=== PATIENT | female | born 1965 | race Caucasian/White ===

== ENCOUNTER 2021-06-04 15:44 | Emergency (ER) | payer OTHER, SELFPAY ==
--- NOTE | ~2021-06-04 | XR_ITS ---
EXAMINATION: XR knee RT min 4V DATE: 06/04/2021 18:16 INDICATION: Anterolateral right knee pain post twisting injury TECHNIQUE: Anteroposterior, 2 oblique, sunrise and crosstable lateral views of the right knee were ob tained COMPARISON: None. FINDINGS: Alignment is normal. No fracture. Joint spaces appear relatively preserved on nonweightbearing imagi ng. Small marginal osteophytes at the patellofemoral compartment. Chondrocalcinosis at the medial and to a lesser degree at the lateral compartments. Small to moderate-sized right knee joint effusion wi thout evident layering lipohemarthrosis. Soft tissues are unremarkable. IMPRESSION: 1. Small to moderate-sized right knee joint effusion. No acute osseous abnormality. 2. Chondrocalcinosis in the medial and lateral compartments. Reviewed, dictated and finalized at location A. IMPRESSION: 1. Small to moderate-sized right knee joint effusion. No acute osseous abnormal ity. 2. Chondrocalcinosis in the medial and lateral compartments.
[2021-06-04 15:54] VITALS: BP 130/65; PULSE 107; RESP 16; TEMP 36.7; O2SAT 98
--- NOTE | 2021-06-04 16:27 | ED.GENADULT ---
HPI - General Adult General Chief complaint: Extremity Injury, Lower <CARLOS MANUEL Stewart - Last Filed: 06/05/21 12:56> Stated complaint: fell right knee pain <CARLOS MANUEL Stewart - Last Filed: 06/05/21 12:56> Time Seen by Provider: 06/04/21 16:02 <CARLOS MANUEL Stewart - Last Filed: 06/05/21 12:56> Source: patient and RN notes reviewed <CARLOS MANUEL Stewart - Last Filed: 06/05/21 12:56> Mode of arrival: ambulatory <CARLOS MANUEL Stewart - Last Filed: 06/05/21 12:56> Limitations: no limitations <CARLOS MANUEL Stewart - Last Filed: 06/05/21 12:56> History of Present Illness HPI narrative: 56-year-old female presents with complaints of right knee pain and swelling for the past 3 hours. ?Conchita reports walking and slipped on a potato chip causing RT leg to give out, believing she twisted RT knee causing injury. ?Motrin 800mg, last taken at 15:30 without relief. ?No radiation of pain. ?No numbness or tingling or bleeding. ?No loss of mobility. ?Exacerbating factors consist of bearing weight and applying pressure. ?No fever. ?LMP 2008. ?Remains active. ?The patient reports she has not been diagnosed with COVID-19. ?The patient reports she is not waiting for the results of a COVID-19 lab test. ?The patient reports she does not have chills, weakness, fatigue, or myalgia. ?The patient reports she does not have a new or worsening cough or shortness of breath. ?The patient reports she does not have any rhinorrhea, congestion, loss of taste, sore throat, nausea, vomiting, abdominal pain, and diarrhea. ?Denies recent traveling. ?Denies concerns for COVID-19 or exposures. ?At this time, the patient is not suspected of having COVID-19.? Some parts of this dictation were generated by voice recognition software and may contain typographical and/or grammatical inaccuracies. <CARLOS MANUEL Stewart - Last Filed: 06/05/21 12:56> Related Data Home medications: Home Medications Medication Instructions Recorded Confirmed No Home Medications 06/04/21 06/04/21 <CARLOS MANUEL Stewart - Last Filed: 06/05/21 12:56> Allergies/adverse reactions: Allergies Allergy/AdvReac Type Severity Reaction Status Date / Time No Known Allergies Allergy Unknown Unverified 08/26/09 15:00 <CARLOS MANUEL Stewart - Last Filed: 06/05/21 12:56> Review of Systems Review of Systems: Narrative: CONSTITUTIONAL: Denies fever, chills, sweats. EYES: Denies visual changes, redness, discharge. ENT: Denies rhinorrhea, congestion, sore throat, otalgia. CARDIOVASCULAR: Denies chest pain, palpitations, edema. RESPIRATORY: Denies dyspnea, wheezing, cough. GASTROINTESTINAL: Denies abdominal pain, nausea, vomiting, diarrhea. SKIN: Denies rash or itching. MUSCULOSKELETAL: Denies acute back pain or myalgia. Complains of Right knee swelling and pain. NEUROLOGIC: Denies numbness or focal weakness. PSYCHIATRIC: Denies anxiety or depression. All other systems reviewed & are unremarkable except as noted in HPI and below. <CARLOS MANUEL Stewart - Last Filed: 06/05/21 12:56> [facility] Past Medical History Medical History: Medical History (Updated 06/05/21 @ 00:01 by Khloe Washington) Back pain with history of spinal surgery <CARLOS MANUEL Stewart - Last Filed: 06/05/21 12:56> Surgical History Surgical History: Surgical History (Updated 06/04/21 @ 16:32 by CARLOS MANUEL Stewart) History of knee surgery History of spinal surgery Fusion with T11-T12 L1 <CARLOS MANUEL Stewart - Last Filed: 06/05/21 12:56> Family History Family History: Family History (Updated 06/04/21 @ 16:33 by CARLOS MANUEL Stewart) Father Congestive heart failure Mother Alive and well <CARLOS MANUEL Stewart - Last Filed: 06/05/21 12:56> Social History Social History: Social History (Updated 06/04/21 @ 16:47 by CARLOS MANUEL Stewart) Smoking status: Never smoker Tobacco
--- NOTE | 2021-06-04 16:39 | PC.NURSE ---
PT HAS ON A RIGHT KNEE IMMOBILIZER AND CRUTCHES AND IS GOING OVER TO [place] PER PRIVATE VEHICLE FOR A RIGHT KNEE FILM. PT IN STABLE CONDITION. OUR XRAY MACHINE IS CURRENTLY OUT OF ORDER. WARREN
== END 2021-06-04 18:07 | disposition home or self-care (01) ==
PROVIDERS: Emergency Provider Nurse Practitioner Family
DX: S89.91XA Unspecified injury of right lower leg, initial encounter (principal); X50.9XXA Other and unspecified overexertion or strenuous movements or postures, initial encounter
CPT/HCPCS: 73564; 99213; G0463; L1830

== ENCOUNTER 2024-03-14 13:34 | Outpatient (CLI) | payer OTHER, SELFPAY ==
--- NOTE | ~2024-03-14 | MM_ITS ---
EXAMINATION: MM screening yvette BI w gabriela HISTORY: Screening mammogram TECHNIQUE: Craniocaudal and mediolateral oblique 3-D tomosynthesis images were obtained and synthetic 2-D images were generated. CAD analysis was submitted and interpreted. COMPARISON: No prior mammograms are available from PACS at this time. BREAST PARENCHYMAL COMPOSITION: The breasts are heterogeneously dense, which may obscure small masses . FINDINGS: Scattered bilateral benign-appearing microcalcifications. There is no evidence of suspiciou s mass, calcification, or architectural distortion to suggest malignancy in either breast. IMPRESSION: 1. No mammographic evidence of malignancy. 2. Recommend routine screening mammography in one year. BI-RADS Category 2: Benign finding(s). Reviewed, dictated and finalized at location A.
== END 2024-03-14 13:35 | disposition home or self-care (01) ==
LOC: ANHIMG 13:36
PROVIDERS: PCP Family Medicine; Visit Provider Family Medicine
DX: Z12.31 Encounter for screening mammogram for malignant neoplasm of breast (principal)
CPT/HCPCS: 77063; 77067

== ENCOUNTER 2025-03-23 13:58 | Outpatient (CLI) | payer BC, SELFPAY ==
--- NOTE | ~2025-03-23 | MM_ITS ---
EXAMINATION: MM screening yvette BI w gabriela HISTORY: Screening TECHNIQUE: Craniocaudal and mediolateral oblique 3-D tomosynthesis images were obtained and synthetic 2-D images were generated. CAD analysis was submitted and interpreted. COMPARISON: 03/14/2024 BREAST PARENCHYMAL COMPOSITION: Dense: The breasts are heterogeneously dense, which may obscure small masses FINDINGS: There is no evidence of suspicious mass, calcification, or architectural distortion to sugg est malignancy in either breast. There has been no suspicious interval change. IMPRESSION: 1. No mammographic evidence of malignancy. 2. Recommend routine screening mammography in one year. BI-RADS Category 1: Negative Reviewed, dictated and finalized at location A.
--- OUTSIDE RECORDS SUMMARY | 2025-03-24 14:13 | XMS_ITS | Clinical Summary ---
Author Organization [facility] Address [address] [place] [address] Care Team Providers Care Avionics Installer Name Role Phone Pat English MD Primary Care Provider [phone] Source Comments [facility],non-owned Affiliates and Associated Physician Practices is amultiple site organization consisting of ambulatory clinics and hospital sitesin [place], [place], [place] and [place]. This disclosure is being madepursuant to the Care Everywhere program and may not contain all information available regarding this patient. Last updated 18.[facility] Allergies No known active allergies Medications * Be aware that medications may not be up to date on this document. Alwaysverify current medications with the patient. 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 Gender Identity Not on file Sexual Orientation Not on file Last Filed Vital Signs Vital Sign Reading Time Taken Comments Blood Pressure 116/66 08/13/2017 11:59 AM CDT Pulse 100 08/13/2017 11:59 AM CDT Temperature 36.8 C (98.2 F) 08/13/2017 11:59 AM CDT Respiratory Rate 18 08/13/2017 11:59 AM CDT Oxygen Saturation 98% 08/13/2017 11:59 AM CDT Inhaled Oxygen Concentration - - Weight 69.4 kg (153 lb) 09/12/2018 10:08 AM CDT Height 157.5 cm (5' 2 ) 09/12/2018 10:08 AM CDT Body Mass Index 27.98 09/12/2018 10:08 AM CDT Plan of Treatment Health Maintenance Due Date Last Done Comments COLOGUARD (AGES 45-75) - COLON CA SCREENING 1965 COLON MONITORING 1965 COLONOSCOPY - COLON CA SCREENING 1965 CT COLONOGRAPHY - COLON CA SCREENING 1965 Colorectal Cancer Screening 1965 FIT - COLON CA SCREENING 1965 FLEX SIG - COLON CA SCREENING 1965 LIPID TESTING 1965 MAMMOGRAM 1965 HIV SCREENING 02/11/1980 HEPATITIS C SCREENING 02/06/1983 DTAP/TDAP/TD VACCINES (1 - Tdap) 02/11/1984 PNEUMOCOCCAL VACCINE 50+ (1 of 1 - PCV) 2015 ZOSTER VACCINE (1 of 2) 2015 SCREENING FOR DIABETES 08/13/2020 7, 08/12/2017, 08/11/2017, Additional history exists COVID-19 VACCINE ( - season) 2024 DEPRESSION SCREENING 11/22/2024 INFLUENZA VACCINE (Season Ended) 2025 Respiratory Syncytial Virus (RSV) Vaccine Pt: or over 60 yrs (1 - 1-dose 75+ series) 02/11/2040 HEPATITIS B VACCINE Aged Out No longe r eligible based on patient's age to complete this topic HIB VACCINE Aged Out No longer eligi ble based on patient's age to complete this topic HPV VACCINE Aged Out No longer eligi ble based on patient's age to complete this topic MENINGOCOCCAL (Group B) VACCINE SHARED DECISION-MAKING Aged Out No longer eligible based on patient's age to complete this topic MENINGOCOCCAL GROUPS A/C/Y/W VACCINE Aged Out No longer eligible based on patient's age to complete this topic Procedures Procedure Name Priority Date/Time Associated Diagnosis Comments BASIC METABOLIC PANEL (CALCIUM TOTAL) Routine 08/13/2017 3:33 AM CDT from Last 3 Months or Most Recently Relevant to Health Maintenance Results * BASIC METABOLIC PANEL (CALCIUM TOTAL) (08/13/2017 3:33 AM CDT) BUN 8 7 - 26 mg/dL [facility] Creatinine 0.6 0.6 - 1.2 mg/dL [facility] Sodium 138 136 - 145 mmol/L [facility] Potassium 3.8 3.5 - 4.5 mmol/L [facility] Chloride 102 98 - 107 mmol/L [facility] CO2 27 22 - 29 mmol/L [facility] Glucose 114 70 - 115 mg/dL [facility] Calcium 8.5 8.4 - 10.2 mg/dL [facility] Anion Gap 13 8 - 18 [facility] BUN/Creatinine Ratio 13 7 - 23 [facility] Osmolality Calculated 285 270 - 300 mOsm/kg [facility] eGFR >60 >60 mL/min/1.7 3 m2 [facility] Blood specimen (specimen) BLOOD SPECIMEN / Unknown 08/13/2017 3:33 AM CDT 08/13/2017 3:41 AM CDT Rafa Da Silva MD LAB - CHEMISTRY ORDERABLES Fin al Result [address] [phone] from Last 3 Months or Most Recently Relevant to Health Maintenance Insurance [employer] A[employer] Care Teams Avionics Installer Relationship Specialty Start Date End Date Pat English MD [id number] [phone] PCP - General 08/10/17
--- OUTSIDE RECORDS SUMMARY | 2025-03-24 14:13 | XMS_ITS | Clinical Summary ---
Author Organization [facility] Address [address] [place] [id number] Care Team Providers Care Custodial Engineer Name Role Phone Pat English MD Primary Care Provider [phone] Social History Tobacco Use Types Packs/Day Years Used Date Smoking Tobacco: Never Assessed Comments Unknown Sex and Gender Information Value Date Recorded Sex Assigned at Not on file Legal Sex Female 6:32 PM CDT Gender Identity Not on file Sexual Orientation Not on file Plan of Treatment Health Maintenance Due Date Last Done Comments Cervical Cancer Screening Pa p Smear (Age 30 to 64) Every 3 Years 1965 Colorectal Cancer Screening Colonoscopy (10 Years) 1965 Annual Physical 02/11/1968 Hepatitis C 1983 DTaP, Tdap and Td Vaccines ( 1 - Tdap) 02/11/1984 Cervical Cancer Screening Pa p with HPV Testing (Age 30 to 64) Every 5 Years 1995 Cervical Cancer Screening with HPV 1995 Mammogram Screening 2005 Pneumococcal Vaccine: 50+ Ye ars (1 of 1 - PCV) 2015 Zoster Vaccines (1 of 2) 2015 COVID-19 Vaccine (2023-2 5 season) 2024 RSV Immunization or 60+ Years (1 - 1-dose 75+ series) 02/11/2040 Meningococcal B Vaccine Aged Out No l onger eligible based on patient's age to complete this topic Meningococcal Vaccine Aged Out No bhumi le eligible based on patient's age to complete this topic RSV Immunizations Under 20 Months Aged Out No longer eligible based on patient's age to complete this topic Care Teams Custodial Engineer Relationship Specialty Start Date End Date Pat English MD [id number] [place], [place] [id number] PCP - General 7/22/14
== END 2025-03-23 13:59 | disposition home or self-care (01) ==
LOC: ANHIMG 14:00
PROVIDERS: PCP Family Medicine; Visit Provider Family Medicine
DX: Z12.31 Encounter for screening mammogram for malignant neoplasm of breast (principal)
CPT/HCPCS: 77063; 77067